=== PATIENT | female | born 1990 | race Caucasian/White ===

== ENCOUNTER 2019-11-18 08:21 | Emergency (ER) | payer SELFPAY ==
--- NOTE | 2019-11-18 09:23 | EDM.PDOC ---
ED HPI GENERAL MEDICAL PROBLEM - General Chief Complaint: Skin Complaint Stated Complaint: VAGINAL ABSCESS Time Seen by Provider: 11/18/19 08:40 Source of Information: Reports: Patient, RN Notes Reviewed - History of Present Illness INITIAL COMMENTS - FREE TEXT/NARRATIVE: 29 yr old female comes in with L Labial cyst. She states it has been present for about 9 mionths but normally quite small and not bothersome. It has been larger than normal the past 2 wks but has not gone down or changed much. No drainage, no fever or chills. No other skin lesions or hx of prior cyst or abcess. Vaginal Pain Score (Numeric/FACES): 6 - Related Data Allergies Allergy/AdvReac Type Severity Reaction Status Date / Time tramadol Allergy Nausea Verified 11/18/19 08:38 Home Meds: Home Meds Doxycycline [Vibramycin] 100 mg PO BID #14 tab 11/18/19 [Rx] Past Medical History [employer] History: Reports: Social & Family History - Tobacco Use Smoking Status *Q: Current Every Day Smoker Years of Tobacco use: 15 Packs/Tins Daily: 0.1 ED ROS GENERAL - Review of Systems Review Of Systems: See Below Constitutional: Denies: Fever Respiratory: Reports: No Symptoms GI/Abdominal: Reports: No Symptoms : Denies: No Symptoms, Dysuria Musculoskeletal: Reports: No Symptoms Skin: Reports: Other (L labial cyst) ED EXAM, SKIN/RASH Exam: See Below General Appearance: Alert, No Apparent Distress Throat/Mouth: Normal Inspection Head: No: Facial Swelling Neck: Supple Respiratory/Chest: No Respiratory Distress Cardiovascular: Regular Rate, Rhythm (Female) Exam: Other (1 to 2 cm area of swelling L outer labia, now erythematous or inflamed at this time, not tensely swollen, very mild localized tenderness, no visible head or area of prior drainage) Neurological: Alert Skin: Warm, Dry, Other (skin otherwise clear) Course - Vital Signs Last Recorded V/S: Last Vital Signs Temp 97.1 F 11/18/19 08:34 Pulse 81 11/18/19 08:34 Resp 16 11/18/19 08:34 BP 133/82 11/18/19 08:34 Pulse Ox 95 11/18/19 08:34 Departure - Departure Time of Disposition: 09:24 Disposition: Home, Self-Care 01 Condition: Fair Clinical Impression: Labial cyst - Discharge Information Prescriptions: Doxycycline [Vibramycin] 100 mg PO BID #14 tab Referrals: PCP,None [Primary Care Provider] - Forms: ED Department Discharge Additional Instructions: Continue with warm soaks 2 to 3 times daily, doxycycline antibiotic twice daily for 1 week or until gone. Prescription has been sent electronically to the [facility] on [facility]. Follow-up at our [facility] medical clinic with Ofelia Carter or 1 of our other [employer] providers in about 1 week. Call [phone] for appointment. Sepsis Event Note - Evaluation Sepsis Screening Result: No Definite Risk - Focused Exam Vital Signs: Vital Signs Temp Pulse Resp BP Pulse Ox 11/18/19 08:34 97.1 F 81 16 133/82 95 Date Exam was Performed: 11/18/19 Time Exam was Performed: 09:52
== END 2019-11-18 09:31 | disposition home or self-care (01) ==
LOC: JD.ED 08:21
DX: N90.7 Vulvar cyst (principal); F17.210 Nicotine dependence, cigarettes, uncomplicated; Z88.5 Allergy status to narcotic agent
CPT/HCPCS: 99282; 99283

== ENCOUNTER 2019-11-22 09:12 | Emergency (ER) | payer SELFPAY ==
--- NOTE | 2019-11-22 09:40 | EDM.PDOC ---
ED HPI GENERAL MEDICAL PROBLEM - General Chief Complaint: Skin Complaint Stated Complaint: BUMP ONTOP OF RIGHT EYE Time Seen by Provider: 11/22/19 09:22 Source of Information: Reports: Patient, RN Notes Reviewed - History of Present Illness INITIAL COMMENTS - FREE TEXT/NARRATIVE: 29-year-old female developed what looks and felt like a pimple right upper eyelid days ago. It has become more swollen uncomfortable and did seem to be coming to ahead. Did squeeze that earlier today and since that time there has been some "pussy type drainage". Redness has spread across most of the right upper lower eyebrow upper eyelid area. She has no pain or inflammation of her eye, no visual difficulty, no headache fever chills. Already is on doxycycline that was started about 5 days ago for a pelvic cyst. The pelvic cyst 5 days ago was not red inflamed or draining she states that "it is about the same. No history of other skin lesions. - Related Data Allergies Allergy/AdvReac Type Severity Reaction Status Date / Time tramadol Allergy Nausea Verified 11/18/19 08:38 Home Meds: Home Meds Doxycycline [Vibramycin] 100 mg PO BID #14 tab 11/18/19 [Rx] Cephalexin [Keflex] 500 mg PO QID #30 capsule 11/22/19 [Rx] Sulfamethoxazole/Trimethoprim [Bactrim Ds Tablet] 1 each PO BID #14 tablet 11/21 [Rx] Past Medical History [employer]UR[employer] History: Reports: ED ROS GENERAL - Review of Systems Review Of Systems: See Below Constitutional: Reports: No Symptoms. Denies: Fever, Chills HEENT: Reports: Other (area of swelling, inflamation R upper eyelid, lower eyebrow R face). Denies: Eye Pain, Throat Pain, Vision Change Respiratory: Reports: No Symptoms Cardiovascular: Reports: No Symptoms GI/Abdominal: Reports: No Symptoms Musculoskeletal: Reports: No Symptoms Skin: Reports: Erythema Neurological: Reports: No Symptoms ED EXAM, SKIN/RASH Exam: See Below General Appearance: Alert Eye Exam: Bilateral Eye: PERRL, Other (no conjuctival injection, no exudate, tearing or drainage from either eye) Ears: Normal External Exam Nose: Normal Inspection Throat/Mouth: Normal Inspection Head: Facial Swelling (swelling, erythema R upper eyelid with area of mild moist drainage medial upper R eye lid) Neck: Supple Respiratory/Chest: No Respiratory Distress, Lungs Clear, Normal Breath Sounds Cardiovascular: Regular Rate, Rhythm Skin: Warm, Dry, Normal Color, Other (skin otherwise clear) Course - Vital Signs Last Recorded V/S: Last Vital Signs Temp 97.3 F 11/22/19 09:19 Pulse 62 11/22/19 09:19 Resp 14 11/22/19 09:19 BP 123/91 H 11/22/19 09:19 Pulse Ox 100 11/22/19 09:19 - Orders/Labs/Meds Orders: Active Orders 24 hr Category Date Time Status CULTURE WOUND [RM] Stat Lab 11/22/19 09:50 Ordered Meds: Medications Discontinued Medications Generic Name Dose Route Start Last Admin Trade Name Freq PRN Reason Stop Dose Admin Cephalexin 500 mg 11/22/19 09:49 Keflex PO 11/22/19 09:50 ONETIME ONE Trimethoprim/Sulfamethoxazole 1 tab 11/22/19 09:49 Septra Ds PO 11/22/19 09:50 ONETIME ONE Departure - Departure Time of Disposition: 10:09 Disposition: Home, Self-Care 01 Clinical Impression: Folliculitis Cellulitis Qualifiers: Site of cellulitis: face Qualified Code(s): L03.211 - Cellulitis of face - Discharge Information Prescriptions: Cephalexin [Keflex] 500 mg PO QID #30 capsule Sulfamethoxazole/Trimethoprim [Bactrim Ds Tablet] 1 each PO BID #14 tablet Instructions: Cellulitis, Adult, [id number], Folliculitis Referrals: PCP,None [Primary Care Provider] - Forms: ED Department Discharge Additional Instructions: 1 compresses for 10 to 15 minutes 2-3 times daily today and for the next several days until infection resolving, continue doxycycline as prescribed until gone, cephalexin 500 mg times daily for 1 week and Bactrim DS 1 tablet twice daily for 1 week. Been given your first dosage here in the ED, prescriptions have been sent electronically to [facility]. Follow-up clinic Saturday for recheck, call for appointment, culture results should be available by than. Return to ED as needed. Sepsis Event Note - Evaluation Sepsis Screening Result: No Definite Risk - Focused Exam Vital Signs: Vital Signs Temp Pulse Resp BP Pulse Ox 11/22/19 09:19 97.3 F 62 14 123/91 H 100 Date Exam was Performed: 11/22/19 Time Exam was Performed: 10:05 - My Orders Last 24 Hours: My Active Orders 11/22/19 09:50 CULTURE WOUND [RM] Stat - Assessment/Plan Last 24 Hours: My Active Orders 11/22/19 09:50 CULTURE WOUND [RM] Stat
[2019-11-22] MEDS ORDERED: Sulfamethoxazole/Trimethoprim 800-160 MG Tab PO ONE (09:49)
[2019-11-22] MEDS ORDERED: Cephalexin 500 MG Cap PO ONE (09:49)
== END 2019-11-22 10:19 | disposition home or self-care (01) ==
LOC: JD.ED 09:12
DX: L03.211 Cellulitis of face (principal); L73.9 Follicular disorder, unspecified; Z88.6 Allergy status to analgesic agent
CPT/HCPCS: 87070; 99283; A9270